=== PATIENT | male | born 2000 | race American Indian/Alaskan Native ===

== ENCOUNTER 2019-01-10 12:16 | Emergency (ER) | payer SELFPAY ==
[2019-01-10 12:23] VITALS: BP 157/72
--- NOTE | 2019-01-10 12:32 | Event Note ---
ED Screening Note Date of service: 01/10/19 Time: 12:29 ED Screening Note: 18 y/o male comes in for right ankle and foot. [place] something pop. This initial assessment/diagnostic orders/clinical plan/treatment(s) is/are subject to change based on patients health status, clinical progression and re- assessment by fellow clinical providers in the ED. Further treatment and workup at subsequent clinical providers discretion. Patient/guardian urged not to elope from the ED as their condition may be serious if not clinically assessed and managed. Initial orders include:
--- NOTE | 2019-01-10 13:07 | Emergency Department Report ---
ED Lower Extremity HPI - General Chief Complaint: Extremity Injury, Lower Stated Complaint: RT FOOT PAIN Time Seen by Provider: 01/10/19 13:02 Source: patient Mode of arrival: Ambulatory Limitations: No Limitations - History of Present Illness Initial Comments: Patient complains of right ankle pain, onset during the night after an injury while playing basketball. No numbness, no weakness. Pain with ambulation. Complaint: ankle injury -: Sudden, During the night Injury: Ankle: Right Type of Injury: blunt Place: street/outdoors Severity: moderate Severity scale (0 -10): 5 Improves With: immobilization Worsens With: weight bearing, movement Context: jumping Associated Symptoms: snap/pop sensation, swelling - Related Data Previous Rx's Medication Instructions Recorded Last Taken Type Ibuprofen [Motrin] 600 mg PO Q8H PRN #20 tablet 01/10/19 Unknown Rx Allergies Allergy/AdvReac Type Severity Reaction Status Date / Time No Known Allergies Allergy Unverified 01/10/19 12:28 ED Review of Systems ROS: Stated complaint: RT FOOT PAIN Other details as noted in HPI Comment: All other systems reviewed and negative Musculoskeletal: as per HPI ED Past Medical Hx - Past Medical History Previous Medical History?: No - Surgical History Past Surgical History?: No - Social History Smoking Status: Current Every Day Smoker Substance Use Type: Marijuana - Medications Home Medications: Home Medications Medication Instructions Recorded Confirmed Last Taken Type Ibuprofen [Motrin] 600 mg PO Q8H PRN #20 tablet 01/10/19 Unknown Rx ED Physical Exam - General Limitations: No Limitations General appearance: alert, in no apparent distress - Head Head exam: Present: atraumatic, normocephalic - Eye Eye exam: Present: normal appearance - ENT ENT exam: Present: mucous membranes moist - Neck Neck exam: Present: normal inspection - Respiratory Respiratory exam: Absent: respiratory distress - Rectal Rectal exam: Present: deferred - Extremities Exam Extremities exam: Present: other (there is swelling and tenderness to the right ankle. The knee exam is normal. Distal pulses and sensation are intact.) - Back Exam Back exam: Present: normal inspection - Neurological Exam Neurological exam: Present: alert, oriented X3 - Psychiatric Psychiatric exam: Present: normal affect, normal mood - Skin Skin exam: Present: warm, dry, intact, normal color. Absent: rash ED Course Vital Signs 01/10/19 12:21 Temperature 98.1 F Pulse Rate 85 Respiratory 18 Rate Blood Pressure 157/72 O2 Sat by Pulse 99 Oximetry ED Lower Extremity MDM - Radiology Data Radiology results: image reviewed interpreted by me: Soft tissue swelling without definite evidence of fracture - Medical Decision Making Patient presents with ankle pain after an injury last night. X-ray shows soft tissue swelling as read by me with no evidence of fracture. We'll place an [place]vin wrap/air splint and have him follow-up with orthopedics. - Differential Diagnosis sprain, fracture Critical care attestation.: If time is entered above; I have spent that time in minutes in the direct care of this critically ill patient, excluding procedure time. ED Disposition Clinical Impression: Ankle sprain Qualifiers: Encounter type: initial encounter Involved ligament of ankle: unspecified ligament Laterality: right Qualified Code(s): S93.401A - Sprain of unspecified ligament of right ankle, initial encounter Disposition: TO HOME OR SELFCARE Is pt being admited?: No Condition: Good Instructions: Ankle Sprain (ED) Prescriptions: Ibuprofen [Motrin] 600 mg PO Q8H PRN #20 tablet PRN Reason: Pain Referrals: [facility] MD JOSIE [Primary Care Provider] - 3-5 Days AGATHA WINCHESTER MD [Staff Physician] - 3-5 Days Time of Disposition: 14:11
--- NOTE | 2019-01-10 14:13 | XRay Report ---
Right foot 2 views [id number] INDICATION: Fell, sports injury, ankle pain, foot pain No fractures or dislocations are seen. Right ankle 2 views 1253 Prominent lateral soft tissue swelling is seen. No fractures or dislocations are obvious. Signer Name: Jean Montero MD Signed: 01/10/2019 2:09 PM Workstation Name: [id number]
== END 2019-01-10 14:30 | disposition home or self-care (01) ==
LOC: ED 12:16
DX: S93.401A Sprain of unspecified ligament of right ankle, initial encounter (principal); F17.200 Nicotine dependence, unspecified, uncomplicated; F12.90 Cannabis use, unspecified, uncomplicated; Z79.899 Other long term (current) drug therapy; X58.XXXA Exposure to other specified factors, initial encounter; Y93.67 Activity, basketball; Y92.488 Other paved roadways as the place of occurrence of the external cause; Y99.8 Other external cause status
CPT/HCPCS: 99283